=== PATIENT | female | born 1945 | race Caucasian/White ===

== ENCOUNTER → 2017-10-18 | Outpatient (CLI) | payer OTHER, MEDICARE ==
--- NOTE | 2017-10-18 09:50 | RAD ---
EXAM DESCRIPTION: Knee,Right Complete CLINICAL HISTORY: 72 years, Female, PAIN IN RIGHT KNEE COMPARISON: Previous study June 06, 2016 TECHNIQUE: Three views of the right knee FINDINGS: No fracture or dislocation. Bones appear mildly osteopenic with prominent trabecular pattern. Total right knee arthroplasty is present with no evidence of loosening or infection. Lateral view shows normal position of the patella. Prominent posterior patellar spurring is seen superiorly and inferiorly with small anterosuperior patellar enthesophyte. Moderate suprapatellar knee joint effusion is seen on lateral view. No abnormal patellar tilt or subluxation on patellar sunrise view. IMPRESSION: Total right knee arthroplasty with no hardware complication or fracture. Electronically signed by: Edison Hess MD 10/18/2017 9:49 AM [facility]
--- NOTE | 2017-10-18 09:52 | RAD ---
EXAM DESCRIPTION: Hip,Right 2 Views CLINICAL HISTORY: 72 years, Female, PAIN IN RIGHT HIP COMPARISON: None TECHNIQUE: AP and frog leg lateral views of the hip FINDINGS: Total right hip arthroplasty is noted. Lucency around the tip of the femoral stem measures 1 mm which is not considered significant. No complicating fracture. No hardware malalignment. Lower right pelvic bones appear intact. No sacral fracture. Degenerative changes are seen in the pubic symphysis and right SI joint. IMPRESSION: Total right hip arthroplasty. Electronically signed by: Edison Hess MD 10/18/2017 9:51 AM [facility]
--- NOTE | 2017-10-18 09:54 | RAD ---
EXAM DESCRIPTION: Femur,Right CLINICAL HISTORY: 72 years Female, PAIN IN RIGHT THIGH COMPARISON: None. TECHNIQUE: AP and lateral x-ray views of the entire length of the right femur were obtained including total right hip arthroplasty. FINDINGS: Total right hip arthroplasty is noted. No hardware complication or dislocation. The right femur is intact. No femoral fracture or lytic lesion. Total right knee arthroplasty is present. IMPRESSION: Negative for fracture. Total right knee and right hip arthroplasties. Electronically signed by: Edison Hess MD 10/18/2017 9:53 AM [facility]
== END ==
LOC: RAD 09:04
PROVIDERS: ATTEND Orthopaedic Surgery
DX: M25.561 Pain in right knee (principal); M79.651 Pain in right thigh; M25.551 Pain in right hip; Z01.818 Encounter for other preprocedural examination; Z96.651 Presence of right artificial knee joint; Z96.641 Presence of right artificial hip joint

== ENCOUNTER → 2017-10-19 | Outpatient (CLI) | payer OTHER | LOC: GMAJ 12:49 | PROVIDERS: ATTEND Family Medicine | DX: N39.0 Urinary tract infection, site not specified (principal) ==

== ENCOUNTER → 2017-10-31 | Outpatient (CLI) | payer OTHER, MEDICARE | LOC: GMATM 16:51 | PROVIDERS: ATTEND Nurse Practitioner Family | DX: N30.00 Acute cystitis without hematuria (principal) ==

== ENCOUNTER 2017-11-14 05:44 | Inpatient (IN) | payer OTHER ==
--- NOTE | 2017-11-12 09:56 | HP ---
CHIEF COMPLAINT: Knee pain. HISTORY OF PRESENT ILLNESS: Samara is a 72-year-old female that has had right hip pain pain and right knee replacement in the past. She has been having pain in the left knee secondary to arthritis. She has requested operative intervention given the failure of conservative measures on the left side. After discussing the risks, benefits and alternatives to that, the patient has given informed consent. PAST SURGICAL HISTORY: 1. Hip replacement. 2. Knee replacement. MEDICATIONS: 1. Advair. 2. Albuterol. 3. Bisoprolol. 4. Carvedilol. 5. Crestor. 6. Fluticasone. 7. Forteo. 8. Rosuvastatin. 9. Rizatriptan. 10. ProAir. 11. Nitroglycerin. 12. Lisinopril. 13. Ibuprofen. 14. Furosemide. 15. Sumatriptan. 16. Tramadol. ALLERGIES: NO KNOWN DRUG ALLERGIES. CODE STATUS: DNR. IMMUNIZATIONS: Up to date. SOCIAL HISTORY: The patient does not drink, smoke or use any illicit drugs. FAMILY HISTORY: None pertinent to today's complaint. REVIEW OF SYSTEMS: Negative except as indicated in the History of Present Illness. PHYSICAL EXAMINATION: VITAL SIGNS: Blood pressure 171/83. Pulse 76. Height 5'5". Weight 165 pounds. MENTAL STATUS: The patient is awake, alert, and is able to give a good history and participate in the physical. The patient is oriented to person, place and time. SKIN: Normal tone and turgor. HEENT: Normocephalic, atraumatic. Pupils equal, round and reactive. Mucosal membranes are moist. NECK: Normal range of motion. No thyromegaly, no lymphadenopathy. CHEST: Normal respiratory excursion. CARDIAC: Regular rate and rhythm. No murmurs, rubs or gallops. MUSCULOSKELETAL: The bilateral upper extremities show full active range of motion without pain. She has no deformity and there is no crepitus. Sensation is intact. Strength is 5/5. The right lower extremity shows full painless range of motion in the hip and range of motion in the knee from full extension to about 125 degrees of flexion. Sensation is intact throughout. Strength is 5 /5. The extremity is warm and well perfused. The left lower extremity shows full range of motion of the hip without pain. She has crepitus throughout her range of motion in the knee. She has no varus/valgus or anterior/posterior laxity. She does have severe pain to palpation diffusely about the knee. It is warm and well perfused. IMAGING: X-rays show advanced arthritis. ASSESSMENT: 1. Arthritis. PLAN: The plan at this point is for total knee arthroplasty. We have discussed the risks, benefits, and alternatives to that and the patient has given informed consent. [facility][id number] [facility]
[2017-11-14] MEDS ORDERED: SODIUM CHL 0.9% 100ML MINI-BAG 100 ML IVPB ONE (05:58)
[2017-11-14] MEDS ORDERED: LACTATED RINGERS 1,000 ML IVS ONE (05:58)
[2017-11-14] MEDS ORDERED: SODIUM CHLORIDE 0.9% 250ML 250 ML IVPB ONE (05:59)
[2017-11-14] MEDS ORDERED: LACTATED RINGERS 1,000 ML IV ONE (06:28)
[2017-11-14] MEDS ORDERED: LIDOCAINE 2 % GEL 5 ML TUBE TOP ONE (06:29)
[2017-11-14] MEDS ORDERED: TRANEXAMIC ACID 1,000 MG/10 ML VIAL IV ONE (06:40)
[2017-11-14] MEDS ORDERED: ceFAZolin SODIUM 1 GM VIAL IVPB ONE (07:15)
[2017-11-14] MEDS ORDERED: SODIUM CHLORIDE 0.9% 100ML 100 ML IVPB ONE (07:20)
[2017-11-14] MEDS ORDERED: ceFAZolin SODIUM 1 GM VIAL IRRIG ONE (07:54)
[2017-11-14] MEDS ORDERED: VANCOMYCIN HCL INJ 1,000 MG VIAL IVPB ONE ×4 (07:55→19:57)
[2017-11-14] MEDS ORDERED: ceFAZolin SODIUM 1 GM VIAL INJ ONE ×2 (07:55→08:44)
[2017-11-14] MEDS ORDERED: BUPIVACAINE 0.25% W/EPI 50 ML VIAL INJ ONE ×2 (07:56→08:49)
[2017-11-14] MEDS ORDERED: BUPIVACAINE 0.25% INJ 30 ML VIAL INJ ONE (08:45)
[2017-11-14] MEDS ORDERED: PROPOFOL 200 MG/20 ML VIAL IV ONE (10:00)
[2017-11-14] MEDS ORDERED: DEXAMETHASONE INJ 10 MG/ML VIAL IV ONE (10:00)
[2017-11-14] MEDS ORDERED: ONDANSETRON INJ 4 MG/2 ML VIAL IV ONE (10:00)
[2017-11-14] MEDS ORDERED: fentaNYL CITRATE INJ 50 MCG/ML AMP IV ONE (10:00)
[2017-11-14] MEDS ORDERED: SODIUM CHLORIDE 0.9% 50 ML VIAL INJ ONE (10:00)
--- NOTE | 2017-11-14 11:13 | OP ---
DATE OF PROCEDURE: 11/14/17 PREOPERATIVE DIAGNOSIS: 1. Left knee osteoarthritis. POSTOPERATIVE DIAGNOSIS: 1. Left knee osteoarthritis. PROCEDURE: 1. Left total knee arthroplasty. SURGEON: Amadou Thibodeaux MD. WOODWIND REEDS CUTTER: Travis Kramer CST, SA-C. ANESTHESIA: General. COMPLICATIONS: None. FINDINGS: Severe osteoarthritis. INDICATION: Samara has a history of pain in the knee. She has had total knee arthroplasty con the contralateral side. Because of her pain and failure of conservative measures, she has requested operative intervention. After discussing the risks, benefits and alternatives to that, the patient has given informed consent for total knee arthroplasty. PROCEDURE: The patient was brought to the Operating Room and placed in supine position. General anesthesia was induced and the patient's leg was sterilely prepped and draped. Following prepping and draping, the distal femur was exposed and using an intramedullary guide, the distal femoral cut was made. The appropriate sized cutting block was measured, pinned into place, and the anterior, posterior, and chamfer cuts were made. The ACL was transected and the tibia was subluxed. Both the medial and lateral menisci were removed. An intramedullary guide was used to make the proximal tibial cut. The appropriate sized base plate was placed and a trial polyethylene was placed. The trial femur was placed, the knee was reduced, and the knee was taken through a range of motion. The knee was stable in anterior, posterior, varus and valgus stress. The patella tracked anatomically without evidence of subluxation or dislocation. After trialing, the trial components were removed and the bony surfaces were thoroughly irrigated with saline. Following irrigation, the surfaces were dried and the final components were cemented into place. The excess cement was removed and the remaining cement was allowed to cure. The knee was again taken through a range of motion to confirm stability. The wound was then irrigated with saline and closure was performed using PDS to approximate the arthrotomy followed by closure of the subcutaneous tissues with a combination of running and interrupted Monocryl sutures. Sterile dressing was placed. The patient was awoken from anesthesia and taken to Recovery. POSTOPERATIVE INSTRUCTIONS: The patient will be weight-bearing as tolerated on postoperative day 1. COMPONENTS: [employer] Triathlon knee, size 4 femur, size 3 tibia, 11 mm insert. #[id number] [facility]
[2017-11-14] MEDS ORDERED: MORPHINE SULFATE INJ 10 MG/ML VIAL IM PRN (11:18)
[2017-11-14] MEDS ORDERED: PROMETHAZINE HCL INJ 25 MG in SODIUM CHLORIDE 0.9% 50ML 50 ML IVPB PRN (11:18)
[2017-11-14] MEDS ORDERED: ACETAMINOPHEN 500 MG TAB PO PRN (11:18)
[2017-11-14] MEDS ORDERED: MORPHINE SULFATE INJ 10 MG/ML VIAL IV PRN (11:18)
[2017-11-14] MEDS ORDERED: PROMETHAZINE HCL INJ 12.5 MG in SODIUM CHLORIDE 0.9% 50ML 50 ML IVPB PRN (11:18)
[2017-11-14] MEDS ORDERED: NALOXONE HCL INJ 0.4 MG/ML VIAL IV PRN (11:18)
[2017-11-14] MEDS ORDERED: DEX 5% W/NACL 0.45% 1000ML 1,000 ML IVS ONE (11:27)
[2017-11-14] MEDS ORDERED: HYDROmorphone PCA 0.2 MG/ML 1 BAG BAG IVPB SCH (11:30)
[2017-11-14] MEDS ORDERED: CYCLOBENZAPRINE HCL 10 MG TAB PO PRN (11:48)
[2017-11-14] MEDS ORDERED: traMADol HCL 50 MG TAB PO PRN (11:48)
[2017-11-14] MEDS ORDERED: ALBUTEROL SULFATE 2.5 MG/3 ML VIAL NEB PRN (11:48)
--- NOTE | 2017-11-14 11:48 | PCM.CORE ---
Physician DVT/VTE - Prophylaxis Currently: Patient already on anticoagulation therapy - Nurse DVT Assessment & Total Each Risk Factor Represents 5 Points: Elective Arthtroplasty Each Risk Factor Represents 2 Points: Age 60-74 DVT Assessment Score: 7 - 5 or more Very High Risk Treatments: Early Ambulation *, Sequential Compression Device Pharmacological: Enoxaparin 30mg SQ BID
[2017-11-14] MEDS: ASPIRIN TABLET 325 MG TAB PO SCH (12:03)
[2017-11-14] MEDS: IV SET AND CAP CHANGE INJ INJ SCH (12:03)
--- NOTE | 2017-11-14 13:23 | CONS ---
SUPERVISING PHYSICIAN: Bradley De La Garza MD REASON FOR CONSULTATION: Left total knee arthroplasty. HISTORY OF PRESENT ILLNESS: Ms. Gunderson is a 72-year-old, female patient that presented to the hospital for elective left total knee arthroplasty. She has a longstanding history of left knee pain that has been treated with multiple conservative outpatient measures. The patient has failed to receive a significant treatment results with conservative measures and has requested that Dr. Thibodeaux perform a left total knee arthroplasty to assist with decreasing her symptoms and help the patient to return to a normal daily functionality without significant pain. The patient was admitted for an elective left total knee arthroplasty. She does have allergy to morphine and codeine and did not receive Astramorph. She seen in immediate postoperative state and was in stable condition and in no acute distress. PAST MEDICAL HISTORY: 1. Asthma. 2. Arthritis. 3. Anemia. PAST SURGICAL HISTORY: 1. Colonoscopy. 2. Complete hysterectomy in her 20s. 3. Right hip replacement. 4. Right knee replacement in May of 2016. CURRENT MEDICATIONS: 1. Crestor 20 mg daily. 2. Albuterol inhaler 2.5 mg inhaled p.r.n. as needed. 3. Ventolin Handihaler 1 puff inhaled as needed. 4. Flexeril 10 mg t.i.d. 5. Aspirin 325 mg daily. 6. Stool softener 100 mg daily. 7. Lasix 40 mg q.a.m. 8. Lisinopril 20 mg daily. 9. Ibuprofen 800 mg as needed. 10. Tramadol 50 to 100 mg q.6h. as needed for pain. ALLERGIES: CODEINE, MORPHINE, PENICILLIN. FAMILY HISTORY: Positive of lung cancer, diabetes mellitus, cerebrovascular accidents. 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 She has never smoked tobacco and denies any alcohol or illicit drug use. She does currently live in [place], [place], and is . REVIEW OF SYSTEMS: CONSTITUTIONAL: Denies any fevers, chills or weight loss. She does have a history of previously being anemic with iron deficiency and has received blood in the past, but complains of no increasing weakness prior to surgery. HEENT: Denies hearing or vision disturbances, headaches, nasal congestion or sore throats. RESPIRATORY: No shortness of breath, cough, wheezing or sputum production. CARDIOVASCULAR: No reported chest pain, palpitations or syncopal episodes. GASTROINTESTINAL: Denies nausea or vomiting, diarrhea or constipation. GENITOURINARY: Denies dysuria, hematuria or other urinary symptoms. EXTREMITIES: As noted in history of present illness. Significant pain in the left knee requiring total knee arthroplasty with right knee completed in the last two years. NEUROLOGIC: No reported headaches, focal weaknesses, ataxia or other neurologic symptoms. PHYSICAL EXAMINATION: VITAL SIGNS: Temperature 98.2. Pulse 59. Blood pressure 165/75. Respirations 16. Saturation 99% on room air. HEENT: Tympanic membranes clear bilaterally. Oropharynx is pink, moist without any lesions. NECK: Supple, nontender with full range of motion. No jugular venous distention noted. RESPIRATORY: Lungs clear to auscultation bilaterally without any rhonchi, wheezes, or rales. CARDIOVASCULAR: Regular rate and rhythm without any appreciable murmurs, gallops, or rubs. ABDOMEN: Soft, nontender. Positive bowel sounds. EXTREMITIES: There is no cyanosis, clubbing or edema. Left knee does have a bulky dressing in place with pulses distally strong. Brisk capillary refill. NEUROLOGIC: The patient is alert and oriented times three. Cranial nerves II- XII are grossly intact. Facial features are symmetrical. Extraocular movements are within normal limits. There is no nystagmus noted. LABORATORY: Postoperative hemoglobin and hematocrit pending. ASSESSMENT: 1. Immediate postoperative day 0 for elective left total knee arthroplasty secondary to chronic pain having failed to respond to outpatient treatment measures with surgery being performed by Dr. Amadou Thibodeaux. 2. History of asthma, stable. 3. History of anemia, iron deficiency, but stable, being followed in the clinic. PLAN: The patient will be followed closely as she progresses through her physical therapy goals under the supervision of orthopedic services and physical therapy. We will closely monitor her as needed including blood pressure. We will resume home medications once those have been updated and verified. She will remain on DVT prophylaxis as per orthopedic protocol. We will anticipate length of stay to be two to three days. Until the patient has med physical therapy goals, we will continue to monitor the patient closely and treat appropriately. #[id number] [facility]
[2017-11-14] MEDS: DEX 5% W/NACL 0.45% 1000ML 1,000 ML IVS PRN (13:48)
[2017-11-14] MEDS ORDERED: CELECOXIB 100 MG CAP ONE (13:54)
[2017-11-14] MEDS ORDERED: ceFAZolin SODIUM 2 GRAMS PREMI 50 ML IVPB ONE ×2 (13:54→19:56)
[2017-11-14] MEDS: ONDANSETRON INJ 4 MG/2 ML VIAL IV PRN ×2 (13:58→21:45)
[2017-11-14] MEDS: SODIUM CHLORIDE 0.9% (FLUSH) 10 ML SYG IV PRN ×3 (13:59→17:20)
[2017-11-14] MEDS ORDERED: LISINOPRIL 10 MG TAB PO ONE (15:59)
[2017-11-14] MEDS: ceFAZolin SODIUM 2 GRAMS PREMI 2 GM in PREMIX BAG 1 BAG IVPB SCH (16:15)
[2017-11-14] MEDS ORDERED: PROMETHAZINE HCL INJ 25 MG/ML VIAL ONE (16:35)
[2017-11-14] MEDS ORDERED: SODIUM CHLORIDE 0.9% 250ML 250 ML ONE ×2 (16:35→19:56)
[2017-11-14] MEDS ORDERED: SODIUM CHLORIDE 0.9% 50ML 50 ML ONE (16:36)
[2017-11-14] MEDS: CELECOXIB 100 MG CAP PO SCH (17:02)
[2017-11-14] MEDS: VANCOMYCIN HCL INJ 1,000 MG in SODIUM CHLORIDE 0.9% 250ML 250 ML IVPB SCH (17:19)
[2017-11-14] MEDS ORDERED: ENOXAPARIN SODIUM 30 MG/0.3 ML SYG SUBCU ONE (19:56)
[2017-11-14] MEDS: HYDROcodone 5MG/APAP 325MG 1 EA TAB PO PRN (20:03)
[2017-11-14] MEDS: DOCUSATE CALCIUM 240 MG CAP PO SCH (20:03)
[2017-11-14] MEDS: ATORVASTATIN 20 MG TAB PO SCH (20:04)
[2017-11-14] MEDS: ENOXAPARIN SODIUM 30 MG/0.3 ML SYG SUBCU SCH (21:46)
[2017-11-15] MEDS: ceFAZolin SODIUM 2 GRAMS PREMI 2 GM in PREMIX BAG 1 BAG IVPB SCH ×2 (00:30→08:48)
[2017-11-15] MEDS: VANCOMYCIN HCL INJ 1,000 MG in SODIUM CHLORIDE 0.9% 250ML 250 ML IVPB SCH (05:59)
[2017-11-15] MEDS: HYDROcodone 5MG/APAP 325MG 1 EA TAB PO PRN ×3 (06:35→16:59)
[2017-11-15] MEDS ORDERED: ceFAZolin SODIUM 2 GRAMS PREMI 50 ML IVPB ONE (07:17)
[2017-11-15] MEDS: CELECOXIB 100 MG CAP PO SCH ×2 (08:02→16:59)
[2017-11-15] MEDS: ASPIRIN TABLET 325 MG TAB PO SCH (09:02)
[2017-11-15] MEDS: LISINOPRIL 10 MG TAB PO SCH (09:02)
[2017-11-15] MEDS: MAGNESIUM OXIDE 400 MG TAB PO SCH (09:02)
[2017-11-15] MEDS: FUROSEMIDE 40 MG TAB PO SCH (09:03)
--- NOTE | 2017-11-15 09:06 | RAD ---
EXAM DESCRIPTION: Knee,Left 2 or More Views CLINICAL HISTORY: 72 years, Female, POSTOP COMPARISON: None TECHNIQUE: 2 views of the postop left knee FINDINGS: No complicating fracture or dislocation. Bones appear intact around the femoral and acetabular components of the total knee prosthesis. Lateral view shows normal position of the patella. No suprapatellar knee joint effusion. There is air in the soft tissues. IMPRESSION: Negative for fracture or dislocation. Electronically signed by: Edison Hess MD 11/15/2017 9:04 AM CDT
[2017-11-15] MEDS: ENOXAPARIN SODIUM 30 MG/0.3 ML SYG SUBCU SCH ×2 (11:10→22:57)
--- NOTE | 2017-11-15 13:07 | PN ---
DATE: 11/15/17 SUBJECTIVE: Ms. Gunderson is doing well and her pain is well controlled right now. OBJECTIVE: Afebrile. Vital signs stable. Dressing is clean, dry and intact. ASSESSMENT: Status post total knee arthroplasty. PLAN: The plan at this point is for her to begin weight-bearing as tolerated. #[id number] [facility]
--- NOTE | 2017-11-15 13:09 | PN ---
DATE: 11/14/17 POSTOPERATIVE CHECK SUBJECTIVE: Ms. Gunderson is doing well and actually has pretty good pain control from her adductor canal block. OBJECTIVE: Afebrile. Vital signs stable. Dressing is clean, dry and intact. ASSESSMENT: Status post total knee arthroplasty. PLAN: The plan at this point is for her to begin weight-bearing as tolerated on postoperative day 1. [facility][id number] [facility]
--- NOTE | 2017-11-15 15:14 | PN ---
DATE: 11/15/17 SUBJECTIVE: The patient is now on her first day after left total knee arthroplasty, which was successful yesterday. She is sitting up in the chair and seems to tolerate it quite well. Appetite is improved. She is fully awake and alert. 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 She has had this pain worsening in her left knee for the last three years and was scheduled for surgery, but then had a fall and broke a up which had postponed the knee surgery subsequently. OBJECTIVE: VITAL SIGNS: Afebrile. Pulse 81. Blood pressure 131/78. Pulse oximetry 98% on room air. LUNGS: Clear. HEART: Regular. ABDOMEN: Soft. EXTREMITIES: She is encouraged to breathe deeply and to actively contract and relax the muscles of her lower extremities. The wound and laceration and dressing appear to be clean on the knee postoperatively. LABORATORY: Hemoglobin is down from 12.8 to 11.2 with hydration postoperatively. MRSA shows no growth. Urine culture also negative. ASSESSMENT: 1. Postoperative day 1 from left total knee arthroplasty having failed outpatient therapy and requiring surgical intervention to assist with pain control. Surgery performed yesterday by Dr. Amadou Thibodeaux, orthopedic surgeon. 2. History of asthma, stable. 3. History of anemia with appearance of iron deficiency, currently stable. 4. History of mild hypertension in the past. PLAN: Continue DVT prophylaxis with increasing activity and continued analgesia for pain control to assist with ongoing rehabilitation and response so that it can be continued until she is safe to return home. Continue rehab with observation. #[id number] [facility]
[2017-11-15] MEDS: DEX 5% W/NACL 0.45% 1000ML 1,000 ML IVS PRN (20:12)
[2017-11-15] MEDS: DOCUSATE CALCIUM 240 MG CAP PO SCH (20:38)
[2017-11-15] MEDS: ATORVASTATIN 20 MG TAB PO SCH (20:38)
[2017-11-16] MEDS: HYDROcodone 5MG/APAP 325MG 1 EA TAB PO PRN ×2 (06:13→11:44)
--- NOTE | 2017-11-16 07:56 | PN ---
DATE: 11/16/17 SUBJECTIVE: Ms. Gunderson is doing well and was up walking throughout the [place] yesterday. OBJECTIVE: Afebrile. Vital signs stable. Wound is clean. There are no signs or symptoms of infection. ASSESSMENT: Status post total knee arthroplasty. PLAN: The plan is to continue with weight-bearing as tolerated and range of motion exercises with therapy. [facility][id number] [facility]
[2017-11-16] MEDS: CELECOXIB 100 MG CAP PO SCH ×2 (08:03→16:38)
[2017-11-16] MEDS: SODIUM CHLORIDE 0.9% (FLUSH) 10 ML SYG IV SCH ×2 (08:51→21:43)
[2017-11-16] MEDS: LISINOPRIL 10 MG TAB PO SCH (08:51)
[2017-11-16] MEDS: MAGNESIUM OXIDE 400 MG TAB PO SCH (08:51)
[2017-11-16] MEDS: ASPIRIN TABLET 325 MG TAB PO SCH (08:51)
[2017-11-16] MEDS: FUROSEMIDE 40 MG TAB PO SCH ×2 (08:51→09:42)
[2017-11-16] MEDS ORDERED: ONDANSETRON 4 MG TAB PO PRN (10:32)
[2017-11-16] MEDS: ENOXAPARIN SODIUM 30 MG/0.3 ML SYG SUBCU SCH ×2 (10:49→22:41)
[2017-11-16] MEDS ORDERED: BISACODYL TAB 5 MG TAB PO PRN (16:03)
[2017-11-16] MEDS ORDERED: MAGNESIUM HYDROXIDE 30 ML UD PO PRN (16:20)
--- NOTE | 2017-11-16 17:20 | PN ---
DATE: 11/16/17 SUBJECTIVE: The patient is resting in the bed. She has had increased pain today more with movement of her left knee than with weightbearing. She is up to 100 degrees on her range of motion machine. Somewhat nauseated but she states the food is not entirely to her liking. Family will be able to bring in some food from home and from elsewhere to assist with her nutrition. OBJECTIVE: See vitals. LUNGS: Clear. HEART: Tones regular. ABDOMEN: Soft. Last bowel movement was before surgery and she is wishing to try a gentle laxative to assist with elimination. Bowel tones are present. No tenderness or rebound tenderness present. The dressing on the incision left knee is clean. No calf tenderness but she is experiencing some discomfort from the thigh down below the knee as it relates to her recent surgery. ASSESSMENT: 1. Postoperative day #2 left total knee arthroplasty having failed outpatient therapy and requiring surgical intervention to assist with pain control. Surgery was performed by Dr. Amadou Thibodeaux, orthopedic surgeon. 2. History of asthma, stable. 3. History of anemia with appearance of iron deficiency, stable. 4. History of mild hypertension in the past. 5. Mild obstipation probably related to analgesia received postoperatively. PLAN: Will try some Dulcolax tablets since she does not want liquid or suppositories or enemas. Will offer Milk of Magnesia if no significant result with Dulcolax tablets. Observe closely. Continue with rehabilitation. Decision tomorrow to be made in consultation with physical therapy as to whether she will go to Swing Bed status on Sunday or will be discharged home depending upon how well she is doing at the time of the exam tomorrow. Close followup suggested. #[id number] [facility]
[2017-11-16] MEDS: ATORVASTATIN 20 MG TAB PO SCH (21:43)
[2017-11-16] MEDS: DOCUSATE CALCIUM 240 MG CAP PO SCH (21:44)
[2017-11-17] MEDS: HYDROcodone 5MG/APAP 325MG 1 EA TAB PO PRN ×3 (00:56→15:33)
[2017-11-17] MEDS: ASPIRIN TABLET 325 MG TAB PO SCH (09:11)
[2017-11-17] MEDS: LISINOPRIL 10 MG TAB PO SCH (09:12)
[2017-11-17] MEDS: CELECOXIB 100 MG CAP PO SCH (09:12)
[2017-11-17] MEDS: MAGNESIUM OXIDE 400 MG TAB PO SCH (09:12)
[2017-11-17] MEDS: SODIUM CHLORIDE 0.9% (FLUSH) 10 ML SYG IV SCH (09:12)
[2017-11-17 10:17] VITALS: O2SAT 97
[2017-11-17] MEDS: IV SET AND CAP CHANGE INJ INJ SCH (12:03)
[2017-11-17] MEDS: ENOXAPARIN SODIUM 30 MG/0.3 ML SYG SUBCU SCH (12:03)
[2017-11-17 15:56] VITALS: BP 132/74; TEMP 98.3
[2017-11-17] MEDS ORDERED: BISACODYL SUPPOSITORY 10 MG PR ONE (21:00)
[2017-11-17] MEDS ORDERED: MAGNESIUM HYDROXIDE 30 ML UD PO ONE (21:00)
--- NOTE | 2017-11-18 22:20 | DS ---
SUPERVISING PHYSICIAN: Bradley De La Garza M.D. DISCHARGE DIAGNOSIS: 1. Postoperative day #3 left total knee arthroplasty having failed outpatient therapy and requiring surgical intervention to assist with pain control. Surgery was performed by Dr. Amadou Thibodeaux, orthopedic surgeon. 2. History of asthma, stable. 3. History of anemia with appearance of iron deficiency anemia, stable. 4. History of mild hypertension in the past. 5. Mild obstipation related to analgesia received postoperatively showing improvement with medical management. REASON FOR HOSPITALIZATION: Ms. Gunderson is a 72 year-old female patient that presented to the hospital for elective total knee arthroplasty. She has a longstanding history of left knee pain that had been treated with multiple conservative treatment measures. She had failed to receive any significant treatment results with conservative measures and had requested Dr. Thibodeaux perform a left total knee arthroplasty to assist with decreasing her symptoms and help to return the patient to normal daily functionality without significant pain. The patient was admitted for elective total left knee arthroplasty. She does have an allergy to morphine and codeine and did not receive Astramorph. She was seen in the immediate postoperative state and was in stable condition and in no acute distress. LABORATORY: Postoperative H&H shows hemoglobin 11.2, hematocrit 33.8. Urinalysis showed trace intact blood with microscopic showing 3 to 5 RBCs, 10 to 20 WBCs with 5 to 10 epithelials and 2+ bacteria. MICROBIOLOGY: Urine culture showed no growth at 48 hours. MRSA surveillance culture showed no growth at 72 hours. RADIOLOGY: No additional radiographic studies were obtained. HOSPITAL COURSE: The patient was admitted for elective left total knee arthroplasty. She was seen in the immediate postoperative state in stable condition. She had little problems with some postoperative nausea which resolved well with treatment plan with some antiemetics. She was able to progress with her physical therapy well enough and had met her goals. It was felt that she could continue with outpatient treatment measures. PLAN: Ms. Gunderson was discharged on 11/17/17 with instructions to followup with Dr. Thibodeaux as scheduled. She was to resume her home medications as instructed prior to hospitalization and take numerous prescriptions as directed. Wound management was per Dr. Thibodeaux's operative instructions. She was to have showers and no tub baths. Increase activity as tolerated per Physical Therapy. Arrangements were [facility]. At discharge, new prescriptions included: 1. Celebrex 100 mg daily, #30. 2. Flexeril 10 mg 3 times a day as needed, #15. 3. [place] 5/325 one every 4 hours as needed. Prescription completed and filled out by Dr. Thibodeaux. 4. Xarelto 10 mg tablets, #8. Condition on discharge was stable and improved. [facility][id number] [facility]
== END 2017-11-17 16:25 | disposition home or self-care (01) | DRG 470 ==
LOC: AMB 05:44 → EDSTATUS 10:00 → MS 10:20
PROVIDERS: ADMIT Orthopaedic Surgery; ATTEND Nurse Practitioner Family
PROC: 0SRD0J9 Replacement of Left Knee Joint with Synthetic Substitute, Cemented, Open Approach (ICD-10-PCS; principal; 2017-11-14 07:08)
DX: M17.12 Unilateral primary osteoarthritis, left knee (principal); J45.909 Unspecified asthma, uncomplicated; D50.9 Iron deficiency anemia, unspecified; I10 Essential (primary) hypertension; Z88.5 Allergy status to narcotic agent; R11.0 Nausea; Z96.651 Presence of right artificial knee joint; Z96.641 Presence of right artificial hip joint; Z66 Do not resuscitate; Z88.0 Allergy status to penicillin; K59.03 Drug induced constipation; T39.95XA Adverse effect of unspecified nonopioid analgesic, antipyretic and antirheumatic, initial encounter

== ENCOUNTER → 2017-12-28 | Outpatient (CLI) | payer OTHER ==
--- NOTE | 2017-12-28 11:36 | US ---
EXAM DESCRIPTION: Venous,Lower Extremity LT CLINICAL HISTORY: SWELLING OF KNEE JOINT COMPARISON: None Available. TECHNIQUE: Left lower extremity venous duplex FINDINGS: Doppler evaluation of the left lower extremity deep veins was performed. Normal color flow is seen in the common femoral, superficial femoral, profunda femoral and greater saphenous veins. Normal flow is seen in the popliteal vein and veins below the knee in the calf. Normal venous compressibility and flow augmentation. IMPRESSION: Negative for evidence of deep venous thrombosis on left lower extremity venous Doppler sonogram. Electronically signed by: Edison Hess MD 12/28/2017 11:35 AM CDT
== END ==
LOC: US 08:23
PROVIDERS: ATTEND Orthopaedic Surgery
DX: M79.605 Pain in left leg (principal); M25.462 Effusion, left knee

== ENCOUNTER → 2019-02-12 | Outpatient (CLI) | payer OTHER ==
--- NOTE | 2019-02-13 07:30 | RAD ---
EXAM: Shoulder,Left 2 or More Views CLINICAL HISTORY: PAIN COMPARISON STUDY: None TECHNICAL: Scapular Y, internal and external rotation images. FINDINGS: There is no fracture and no dislocation. There is no acute osseous abnormality. There are mild degenerative changes of the acromioclavicular joint. Inferior projecting osteophytes can cause impingement symptoms. The visible chest is negative. IMPRESSION: MILD AC JOINT DEGENERATIVE CHANGES, OTHERWISE NEGATIVE SHOULDER. Electronically signed by: Nigel Velasco MD 02/13/2019 7:28 AM CDT
== END ==
LOC: RAD 08:28
PROVIDERS: ATTEND Orthopaedic Surgery
DX: M19.012 Primary osteoarthritis, left shoulder (principal)

== ENCOUNTER → 2019-02-26 | Outpatient (CLI) | payer OTHER ==
--- NOTE | 2019-02-26 13:35 | MRI ---
MRI left shoulder without contrast INDICATION: Shoulder pain rotator cuff tear TECHNIQUE: Noncontrast MR imaging left shoulder FINDINGS: Mild AC joint hypertrophic osteoarthrosis. Generalized grade 1 fatty marbling of the rotator cuff muscle bellies without end-stage atrophy. Moderate subacromial and subdeltoid bursitis. Severe thinning distal supraspinatus tendon indicating high-grade partial to full-thickness tear with motion degradation limiting fine detail. There is extension to the infraspinatus which is thinned as well. There is evidence of labral degeneration again limited by motion. There is tendinosis with interstitial partial tear long head bicep. No complete rupture. Subscapularis appears intact. IMPRESSION: Motion degraded exam limiting fine detail High-grade partial to full-thickness tear distal supraspinatus extending to the infraspinatus Interstitial partial tear long head bicep Subacromial and subdeltoid bursitis Mild AC joint osteoarthrosis Labral degeneration. Electronically signed by: Waldemar Shay MD 02/26/2019 1:33 PM CDT
== END ==
LOC: MRI 08:42
PROVIDERS: ATTEND Orthopaedic Surgery
DX: M75.102 Unspecified rotator cuff tear or rupture of left shoulder, not specified as traumatic (principal); S46.112D Strain of muscle, fascia and tendon of long head of biceps, left arm, subsequent encounter; M19.012 Primary osteoarthritis, left shoulder; M71.812 Other specified bursopathies, left shoulder

== ENCOUNTER → 2019-07-04 | Outpatient (CLI) | payer OTHER ==
--- NOTE | 2019-07-08 14:12 | MAM ---
EXAM DESCRIPTION: 3D Screening BILATERAL : Digital Mammography. CLINICAL HISTORY: 74 years Female ANNUAL SCREENING . No complaints. No personal or family history of breast cancer. Menarche age 17. Childbirth. Postmenopausal 40+ years. No HRT. Lifetime risk of developing breast cancer (Tyrer-Cuzick model)(%): 3.2. COMPARISON: 2-D digital screening bilateral mammography 05 May 2014.. No prior reports available. TECHNIQUE: Bilateral CC and MLO projection full-field images, digital tomosynthesis mammographic technique. Bilateral digital 2-D full-field MLO images. CAD not available for tomosynthesis or 2-D images. FINDINGS: The breast parenchymal density pattern is: Heterogeneously dense breast tissue, which may obscure small masses. No skin thickening or nipple retraction. Right breast axillary lymph nodes. Skin moles left breast. Bilateral solitary microcalcifications. Bilateral vascular calcifications. No new focal, stellate mass or density, focal asymmetry , and no suspicious microcalcifications bilaterally. Stable mammograms compared to prior study. Taking into account, differences in mammographic technique. IMPRESSION: Benign exam. BIRAD CATEGORY: 2 BENIGN FINDINGS. RECOMMENDATIONS: FOLLOW UP: Routine digital bilateral mammographic screening, one year interval from June 2019. Written communication explaining the IMPRESSION and follow-up, will be mailed to the patient and referring health care provider. According to the [employer], yearly mammograms are recommended starting at age 40 and continuing as long as a woman is in good health. Any breast change noted on a breast self-exam should be reported promptly to the patient's healthcare provider. Breast MRI is recommended for women with an approximately 20-25% or greater lifetime risk of breast cancer, including women with a strong family history of breast or ovarian cancer and women who have been treated for Hodgkin's disease. A negative mammographic report should not delay tissue diagnosis in patients with significant clinical history or physical findings. Extremely dense breast tissue limits the sensitivity of digital mammography. Electronically signed by: Travis Johns MD 07/08/2019 2:10 PM BUSINESS STRATEGIST
== END ==
LOC: MAMMO 11:17
PROVIDERS: ATTEND Family Medicine
DX: Z12.31 Encounter for screening mammogram for malignant neoplasm of breast (principal)

== ENCOUNTER 2019-11-16 18:07 | Emergency (ER) | payer MEDICARE, OTHER ==
--- NOTE | 2019-11-16 18:45 | ED.PDOC ---
History of Present Illness - General Chief Complaint: Trauma Stated Complaint: Fall with 1.5 cm laceration to the head Time Seen by Provider: 11/16/19 18:33 - History of Present Illness Initial Comments: Pt fell down today and hit her head , has some open wound/laceration , non bleeding , having pain in knees and hip Allergies/Adverse Reactions: Allergies Chocolate Allergy (Verified 11/16/19 18:45) Codeine Allergy (Verified 11/16/19 18:45) Morphine Allergy (Verified 11/16/19 18:45) Penicillins Allergy (Verified 11/16/19 18:45) Home Medications: Ambulatory Orders Furosemide 40 mg PO QAM #30 04/30/15 Lisinopril 20 mg PO DAILY #30 04/30/15 Albuterol Inhaler [Ventolin Hfa Inhaler] 1 puff INH PRN PRN 05/22/16 Albuterol Sulfate Nebs [Proventil Nebs] 2.5 mg INH PRN 05/22/16 Aspirin 325 mg PO QD 05/22/16 Docusate Sodium [Stool Softener] 100 mg PO DAILY 05/22/16 Ibuprofen 800 mg PO PRN PRN 05/22/16 Tramadol HCl 50 - 100 mg PO Q4-6H PRN #50 tab 06/13/16 Rosuvastatin Calcium [Crestor] 20 mg PO DAILY 11/14/17 Teriparatide (Recombinant) [Forteo] 0.08 ml SUBCU DAILY 11/15/17 Celecoxib 100 mg PO DAILY #30 cap 11/17/17 Cyclobenzaprine HCl [Flexeril] 10 mg PO TID PRN #15 tab 11/17/17 HYDROcodone 5MG/APAP 325MG [Kohler 5/325] 1 ea PO Q4H PRN tab 11/17/17 Rivaroxaban [Xarelto] 10 mg PO DAILY #8 tab 11/17/17 amLODIPine BESYLATE [Norvasc] 5 mg PO DAILY #15 tab 11/16/19 Review of Systems - Review of Systems Constitutional: States: no symptoms reported EENTM: States: no symptoms reported Respiratory: States: no symptoms reported Cardiology: States: no symptoms reported Gastrointestinal/Abdominal: States: no symptoms reported Genitourinary: States: no symptoms reported Musculoskeletal: States: see HPI Skin: States: see HPI Neurological: States: no symptoms reported Endocrine: States: no symptoms reported Hematologic/Lymphatic: States: no symptoms reported Past Medical History (General) - Patient Medical History Hx Seizures: No Hx Stroke: No Hx Asthma: Yes Hx of COPD: Yes Hx Cardiac Disorders: No Hx Congestive Heart Failure: No Hx Pacemaker: No Hx Hypertension: Yes Hx Diabetes: No Hx MRSA: No - Social History Hx Alcohol Use: No Hx Substance Use: No Hx Physical Abuse: No Hx Emotional Abuse: No Family Medical History - Family History Mother Family History: Unknown Living Status: Hx Family Diabetes: Yes Physical Exam - Physical Exam General Appearance: Alert, Comfortable Eye Exam: bilateral normal Ears, Nose, Throat: normal ENT inspection Neck: non-tender, full range of motion, supple, normal inspection Respiratory: lungs clear, normal breath sounds, no respiratory distress, no accessory muscle use Cardiovascular/Chest: regular rate, rhythm, no edema, no gallop, no JVD, no murmur Back Exam: normal inspection, no CVA tenderness, no vertebral tenderness Extremity: normal range of motion, non-tender, normal inspection, no pedal edema, no calf tenderness Neurologic: no motor/sensory deficits, alert, normal mood/affect, oriented x 3 Skin Exam: normal color, warm/dry, other - small laceration on the scalp Procedures - Laceration/Wound Repair Frontal Wound's Depth, Shape: superficial Wound Explored: clean Irrigated w/ Saline (cc's): 10 Wound Repaired With: dermabond Layer Closure?: No Departure - Departure Clinical Impression: Head injury, Fall, Scalp laceration, HTN (hypertension) Time of Disposition: 19:30 Disposition: Discharge to Home or Self Care Condition: Good Departure Forms: ED Discharge - Pt. Copy, Patient Portal Self Enrollment Instructions: DI for Trauma Diet: resume usual diet Activity: increase activity as tolerated, walking as tolerated Referrals: Alejandro Douglas MD [Primary Care Provider] - 1-2 Weeks Prescriptions: amLODIPine BESYLATE [Norvasc] 5 mg PO DAILY #15 tab Home Medications: Ambulatory Orders Furosemide 40 mg PO QAM #30 04/30/15 Lisinopril 20 mg PO DAILY #30 04/30/15 Albuterol Inhaler [Ventolin Hfa Inhaler] 1 puff INH PRN PRN 05/22/16 Albuterol Sulfate Nebs [Proventil Nebs] 2.5 mg INH PRN 05/22/16 Aspirin 325 mg PO QD 05/22/16 Docusate Sodium [Stool Softener] 100 mg PO DAILY 05/22/16 Ibuprofen 800 mg PO PRN PRN 05/22/16 Tramadol HCl 50 - 100 mg PO Q4-6H PRN #50 tab 06/13/16 Rosuvastatin Calcium [Crestor] 20 mg PO DAILY 11/14/17 Teriparatide (Recombinant) [Forteo] 0.08 ml SUBCU DAILY 11/15/17 Celecoxib 100 mg PO DAILY #30 cap 11/17/17 Cyclobenzaprine HCl [Flexeril] 10 mg PO TID PRN #15 tab 11/17/17 HYDROcodone 5MG/APAP 325MG [Kohler 5/325] 1 ea PO Q4H PRN tab 11/17/17 Rivaroxaban [Xarelto] 10 mg PO DAILY #8 tab 11/17/17 amLODIPine BESYLATE [Norvasc] 5 mg PO DAILY #15 tab 11/16/19 Additional Instructions: Return to the ER if symptoms gets worse
--- NOTE | 2019-11-16 19:33 | CT ---
PROCEDURE: Head CLINICAL HISTORY: 74 years Female injury COMPARISON: None. TECHNIQUE: Contiguous axial CT images obtained through the brain without IV contrast. This exam was performed according to our department optimization program which includes automated exposure control, adjustment of the mA and/or kv according to patient size and/or use of iterative reconstruction technique. FINDINGS: The ventricles and sulci appear unremarkable. No mass lesions. No acute hemorrhage. Microvascular ischemic changes. Old ischemic change in the right basal ganglia region Atherosclerotic calcifications in the distal internal carotid arteries.. No fluid or significant mucosal thickening in the visualized paranasal sinuses. No depressed calvarial fractures. IMPRESSION: No acute intracranial abnormality is identified. Electronically signed by: Fracisco Sanchez MD 11/16/2019 7:32 PM CDT
[2019-11-16] MEDS ORDERED: NEOMYCIN-BACITRACIN-POLYMYXIN 0.9 GM UD TOP ONE (19:57)
[2019-11-16 20:12] VITALS: BP 177/85; TEMP 98; O2SAT 96
== END 2019-11-16 20:11 | disposition home or self-care (01) ==
LOC: ER 18:07
DX: S01.01XA Laceration without foreign body of scalp, initial encounter (principal); S09.90XA Unspecified injury of head, initial encounter; I10 Essential (primary) hypertension; M25.561 Pain in right knee; M25.562 Pain in left knee; M25.559 Pain in unspecified hip; J44.9 Chronic obstructive pulmonary disease, unspecified; Z79.899 Other long term (current) drug therapy; Z79.82 Long term (current) use of aspirin; Z88.5 Allergy status to narcotic agent; Z88.0 Allergy status to penicillin; W01.198A Fall on same level from slipping, tripping and stumbling with subsequent striking against other object, initial encounter; Y92.9 Unspecified place or not applicable

== ENCOUNTER → 2020-02-02 | Outpatient (CLI) | payer MEDICARE ==
--- NOTE | 2020-02-02 08:54 | RAD ---
EXAM DESCRIPTION: Hip,Right 2 Views CLINICAL HISTORY: RT HIP PAIN COMPARISON: to September 2017 TECHNIQUE: 2 views right FINDINGS: Right total hip arthroplasty is observed in place. No evidence of loosening or infection is seen. No fracturing is detected. IMPRESSION: Right total hip arthroplasty without evidence of complication. Electronically signed by: Daniel Bee MD 02/02/2020 8:52 AM CDT
--- NOTE | 2020-02-02 08:55 | RAD ---
EXAM DESCRIPTION: Pelvis CLINICAL HISTORY: RT HIP PAIN COMPARISON: 2017 TECHNIQUE: AP pelvis FINDINGS: Degenerative changes are observed in the lower lumbar spine. A right total hip arthroplasty is observed in place. No pelvic fracturing is detected. Mild degenerative changes are seen in the right sacroiliac joint. No evidence of loosening or infection of the prosthesis is seen. IMPRESSION: Mild degenerative changes are observed. No fracturing is detected. Electronically signed by: Daniel Bee MD 02/02/2020 8:54 AM CDT
== END ==
LOC: RAD 07:13
PROVIDERS: ATTEND Orthopaedic Surgery
DX: M16.12 Unilateral primary osteoarthritis, left hip (principal); Z96.641 Presence of right artificial hip joint

== ENCOUNTER → 2020-02-17 | Outpatient (CLI) | payer MEDICARE ==
--- NOTE | 2020-02-18 14:08 | MRI ---
EXAM DESCRIPTION: Lumbar Spine w/o Contrast CLINICAL HISTORY: 74 years Female, INTERVERTEBRAL DISC DISORDERS W/RADICULOPATHY LUMBAR REGION COMPARISON: None available. TECHNIQUE: Multiplanar multiecho imaging of the lumbar spine was performed without intravenous contrast administration. FINDINGS: The vertebral body heights are well-maintained with no acute compression deformity. Multilevel intervertebral disc space narrowing is noted. The conus medullaris terminates at L1-L2 intervertebral disc space. The visualized spinal cord demonstrates no signal abnormality. L1-L2: Disc desiccation and loss of disc height. 4 mm retrolisthesis of L1 over L2. 6.6 mm posterior disc osteophyte complex with no significant central canal stenosis. Mild right and severe left neural foraminal narrowing is noted secondary to facet arthropathy. L2-L3: Disc desiccation and loss of disc height. 6 mm posterior disc bulge with no significant central canal stenosis. Moderate bilateral neural foraminal narrowing is noted secondary to facet arthropathy. L3-L4: Disc desiccation and loss of disc height. 6 mm posterior disc bulge with no central canal stenosis. Moderate bilateral neural foraminal narrowing is noted secondary to facet arthropathy. L4-L5: 4 mm diffuse disc bulge with no significant central canal stenosis. Hypertrophied left facet abuts the left-sided nerve roots. Mild right and [id number] left neural foraminal narrowing is noted secondary to facet arthropathy. L5-S1: Disc desiccation and loss of disc height. 9 mm anterolisthesis of L5 over S1. 1.1 cm posterior disc bulge with moderate central canal stenosis. The thecal sac measures 8mm. Moderate to severe right and moderate left neural foraminal narrowing is noted secondary to facet arthropathy. The visualized prevertebral and paravertebral soft tissues appear unremarkable. IMPRESSION: Multilevel degenerative disc disease and facet arthropathy throughout the lumbar spine with variable degrees of canal stenosis and neural foraminal narrowing as described above. Electronically signed by: Julieta Teague MD 02/18/2020 2:07 PM CDT
== END ==
LOC: MRI 08:53
PROVIDERS: ATTEND Psychiatry & Neurology Neurology
DX: M51.16 Intervertebral disc disorders with radiculopathy, lumbar region (principal); M12.9 Arthropathy, unspecified; M48.061 Spinal stenosis, lumbar region without neurogenic claudication